=== PATIENT | female | born 2000 | race Caucasian/White ===

== ENCOUNTER 2022-04-30 00:24 | Emergency (ER) | payer BC ==
[~2022-04-30] VITALS: Ht 165.1 cm; Wt 112.5 kg
[2022-04-30] MEDS ORDERED: DULOXETINE HCL60 MG PO (00:51)
[2022-04-30] MEDS ORDERED: LAMICTAL25 MG PO (00:52)
[2022-04-30] MEDS ORDERED: TRAZODONE100 MG PO (00:52)
[2022-04-30 00:57] LABS: BILIRUBIN Negative (Negative); BLOOD 3+ (Negative); CLARITY Turbid (Clear); COLOR Yellow (Yellow); GLUCOSE Negative (Negative); KETONE Negative (Negative); LEUKO ESTERASE 3+ (Negative); NITRITE Negative (Negative); PH 5.5 (4.5-8.0); UROBILINOGEN 0.2 E.U./dl (0.0-1.0)
[2022-04-30 01:11] LABS: BACTERIA 2+; RBC TNTC rbc/hpf (0-2); WBC TNTC wbc/hpf (0-5)
[2022-04-30] MEDS ORDERED: CEPHALEXIN500 M1 PO (02:04)
== END 2022-04-30 02:31 | disposition home or self-care (01) ==
LOC: ED 00:24
PROVIDERS: Emergency Medicine
DX: N39.0 Urinary tract infection, site not specified (principal); Z91.040 Latex allergy status; Z79.899 Other long term (current) drug therapy; F17.200 Nicotine dependence, unspecified, uncomplicated

== ENCOUNTER 2022-07-04 20:23 | Emergency (ER) | payer BC ==
[~2022-07-04] VITALS: Ht 165.1 cm; Wt 113.4 kg
[~2022-07-04 20:23] MED LIST: CEPHALEXIN500 M1 PO; DULOXETINE HCL60 MG PO; LAMICTAL25 MG PO; TRAZODONE100 MG PO
[2022-07-04 21:06] LABS: BASO # 0.1 10*3/uL (0.0-0.1); BASO % 0.8 % (0.0-1.0); EOS % 7.1 % (1.0-4.0); HEMATOCRIT 45.7 % (37.0-47.0); LYMPH # 2.8 10*3/uL (1.3-4.4); LYMPH % 20.3 % (27.0-41.0); MEAN CELL VOLUME 85.3 fl (81.0-99.0); MEAN CORPUSCULAR HGB 27.6 pg (27.0-31.0); MEAN CORPUSCULAR HGB CONC 32.4 g/dl (33.0-37.0); MONO # 0.7 10*3/uL (0.1-1.0); MONO % 4.9 % (3.0-9.0); NEUT # 9.1 10*3/uL (2.3-7.9); NEUT % 66.6 % (47.0-73.0); PLATELET COUNT AUTOMATED 350 10*3/uL (130-400); RED BLOOD COUNT 5.36 10*6/uL (4.10-5.10); RED CELL DISTRI WIDTH 13.3 % (0-14.5); WHITE BLOOD COUNT 13.6 10*3/uL (4.8-10.8)
[2022-07-04 21:24] LABS: BILIRUBIN Negative (Negative); BLOOD 1+ (Negative); COLOR Yellow (Yellow); GLUCOSE Negative (Negative); KETONE Negative (Negative); LEUKO ESTERASE 2+ (Negative); NITRITE Negative (Negative); UROBILINOGEN 0.2 E.U./dl (0.0-1.0)
[2022-07-04 21:28] LABS: ALKALINE PHOSPHATASE 92 U/L (45-117); BUN 8 mg/dl (7-24); CHLORIDE 111 mmol/L (98-107); CREATININE 0.76 mg/dL (0.55-1.02); POTASSIUM 3.9 mmol/L (3.5-5.1); SGOT/AST 11 IU/L (3-35); SGPT/ALT 20 U/L (12-78); SODIUM 140 mmol/L (136-145)
[2022-07-04 22:17] LABS: CLARITY Clear (Clear)
[2022-07-04 22:43] LABS: BACTERIA 2+; EPITHELIAL CELLS TNTC
== END 2022-07-04 22:37 | disposition left against medical advice (07) ==
LOC: ED 20:23
PROVIDERS: Internal Medicine
DX: R11.2 Nausea with vomiting, unspecified (principal); Z20.822 Contact with and (suspected) exposure to COVID-19; R42 Dizziness and giddiness; Z91.040 Latex allergy status; Z79.2 Long term (current) use of antibiotics; Z79.899 Other long term (current) drug therapy; Z53.29 Procedure and treatment not carried out because of patient's decision for other reasons

== ENCOUNTER → 2022-09-18 | Outpatient (CLI) | payer BC | END | disposition home or self-care (01) | LOC: RAD 11:53 | PROVIDERS: ATTEND Nurse Practitioner Family | DX: M54.50 Low back pain, unspecified (principal) ==

== ENCOUNTER 2022-11-23 11:02 | Emergency (ER) | payer BC, OTHER ==
[~2022-11-23] VITALS: Ht 165.1 cm; Wt 108.9 kg
== END 2022-11-23 11:52 | disposition home or self-care (01) ==
LOC: ED 11:02
DX: S61.412A Laceration without foreign body of left hand, initial encounter (principal); Z91.040 Latex allergy status; W27.8XXA Contact with other nonpowered hand tool, initial encounter; Y93.89 Activity, other specified; Y92.89 Other specified places as the place of occurrence of the external cause; Y99.0 Civilian activity done for income or pay

== ENCOUNTER 2023-05-24 10:02 | Emergency (ER) | payer BC, OTHER ==
[~2023-05-24] VITALS: Ht 165.1 cm; Wt 152.0 kg
== END 2023-05-24 10:59 | disposition home or self-care (01) ==
LOC: ED 10:02
DX: S33.5XXA Sprain of ligaments of lumbar spine, initial encounter (principal); Z91.040 Latex allergy status; Z79.2 Long term (current) use of antibiotics; Z79.899 Other long term (current) drug therapy; W17.81XA Fall down embankment (hill), initial encounter; Y93.89 Activity, other specified; Y92.828 Other wilderness area as the place of occurrence of the external cause; Y99.8 Other external cause status

== ENCOUNTER 2023-10-17 13:27 | Emergency (ER) | payer OTHER, BC ==
[~2023-10-17] VITALS: Ht 165.1 cm; Wt 94.3 kg
[2023-10-17] MEDS ORDERED: CYCLOBENZAPRINE5 M3 PO (14:39)
== END 2023-10-17 14:46 | disposition home or self-care (01) ==
LOC: ED 13:27
DX: M54.9 Dorsalgia, unspecified (principal); M25.572 Pain in left ankle and joints of left foot; Z91.040 Latex allergy status; V89.2XXA Person injured in unspecified motor-vehicle accident, traffic, initial encounter; Y93.89 Activity, other specified; Y92.481 Parking lot as the place of occurrence of the external cause; Y99.8 Other external cause status

== ENCOUNTER → 2024-09-05 | Outpatient (CLI) | payer OTHER ==
[~2024-09-05] MED LIST changes: +CYCLOBENZAPRINE5 M3 PO
== END | disposition home or self-care (01) ==
LOC: RAD 12:20
PROVIDERS: ATTEND Nurse Practitioner Family
DX: M54.42 Lumbago with sciatica, left side (principal)

== ENCOUNTER 2024-09-17 11:33 | Emergency (ER) | payer OTHER ==
[~2024-09-17] VITALS: Ht 165.1 cm; Wt 95.3 kg
[2024-09-17] MEDS ORDERED: PREDNISONE20 M1 PO (12:04)
[2024-09-17] MEDS ORDERED: methylPREDNISolone sod succ 125 MG VIAL IM ONE (12:10)
== END 2024-09-17 12:16 | disposition home or self-care (01) ==
LOC: ED 11:33
DX: G89.29 Other chronic pain (principal); M54.50 Low back pain, unspecified; Z91.040 Latex allergy status

== ENCOUNTER 2024-11-15 16:58 | Emergency (ER) | payer OTHER ==
[~2024-11-15] VITALS: Ht 165.1 cm; Wt 97.5 kg
[~2024-11-15 16:58] MED LIST changes: +PREDNISONE20 M1 PO
[2024-11-15] MEDS ORDERED: AMOX-CLAV 875-1 EACH PO (17:18)
[2024-11-15] MEDS ORDERED: Ketorolac Tromethamine 60 MG/2 ML VIAL IM ONE (17:20)
== END 2024-11-15 17:27 | disposition home or self-care (01) ==
LOC: ED 16:58
DX: K04.7 Periapical abscess without sinus (principal); Z91.040 Latex allergy status; Z79.2 Long term (current) use of antibiotics; Z79.899 Other long term (current) drug therapy

== ENCOUNTER 2024-11-23 19:07 | Emergency (ER) | payer OTHER ==
[~2024-11-23] VITALS: Ht 165.1 cm; Wt 97.5 kg
[~2024-11-23 19:07] MED LIST changes: +AMOX-CLAV 875-1 EACH PO
[2024-11-23] MEDS ORDERED: HYDROXYZINE PAM50 MG PO (19:37)
[2024-11-23] MEDS ORDERED: LURASIDONE HCL20 MG PO (19:37)
[2024-11-23] MEDS ORDERED: TAMIFLU 75MG CA75 MG PO (20:47)
[2024-11-23] MEDS ORDERED: Oseltamivir Phosphate 75 MG CAP PO ONE (20:50)
== END 2024-11-23 21:12 | disposition home or self-care (01) ==
LOC: ED 19:07
DX: J02.9 Acute pharyngitis, unspecified (principal); R05.9 Cough, unspecified; Z20.822 Contact with and (suspected) exposure to COVID-19; Z91.040 Latex allergy status; Z79.899 Other long term (current) drug therapy

== ENCOUNTER 2025-03-11 19:34 | Emergency (ER) | payer OTHER ==
[~2025-03-11] VITALS: Ht 165.1 cm; Wt 97.5 kg
[~2025-03-11 19:34] MED LIST changes: +HYDROXYZINE PAM50 MG PO; +LURASIDONE HCL20 MG PO; +TAMIFLU 75MG CA75 MG PO
[2025-03-11 20:00] LABS: BILIRUBIN Negative (Negative); BLOOD Negative (Negative); CLARITY Clear (Clear); COLOR Yellow (Yellow); GLUCOSE Negative (Negative); KETONE Trace (Negative); LEUKO ESTERASE Trace (Negative); NITRITE Negative (Negative)
[2025-03-11 20:16] LABS: BACTERIA TRACE; RBC 0-2 rbc/hpf (0-2)
== END 2025-03-11 20:38 | disposition home or self-care (01) ==
LOC: ED 19:34
PROVIDERS: Nurse Practitioner
DX: R11.0 Nausea (principal); Z32.02 Encounter for pregnancy test, result negative; F32.A Depression, unspecified; Z91.040 Latex allergy status; Z79.899 Other long term (current) drug therapy

== ENCOUNTER 2025-05-01 17:40 | Emergency (ER) | payer OTHER ==
[~2025-05-01] VITALS: Ht 165.1 cm; Wt 104.3 kg
[2025-05-01] MEDS ORDERED: SODIUM CHLORIDE 0.9% 1,000 ML IV ONE (18:20)
[2025-05-01] MEDS ORDERED: IOHEXOL 300 MG/ML 100 ML VIAL IV ONE (18:25)
[2025-05-01 18:31] LABS: BASO # 0.1 10*3/uL (0.0-0.1); BASO % 0.5 % (0.0-1.0); EOS # 0.2 10*3/uL (0.0-0.4); EOS % 2.1 % (1.0-4.0); MEAN CELL VOLUME 84.8 fl (81.0-99.0); MEAN CORPUSCULAR HGB 27.4 pg (27.0-31.0); MEAN PLATELET VOLUME 9.5 fl (9.6-12.3); MONO # 0.6 10*3/uL (0.1-1.0); MONO % 5.6 % (3.0-9.0); NEUT # 7.3 10*3/uL (2.3-7.9); NEUT % 68.3 % (47.0-73.0); NUCLEATED RED BLOOD CELL 0.0 % (0.0-0.0); NUCLEATED RED BLOOD CELL 0.0 10*3/uL (0.0-0.0); PLATELET COUNT AUTOMATED 354 10*3/uL (130-400); RED CELL DISTRI WIDTH 12.9 % (0-14.5)
[2025-05-01 18:51] LABS: BILIRUBIN Negative (Negative); BLOOD Negative (Negative); CLARITY Clear (Clear); COLOR Yellow (Yellow); KETONE Trace (Negative); LEUKO ESTERASE Trace (Negative); NITRITE Negative (Negative); PH 5.5 (4.5-8.0); SPECIFIC GRAVITY 1.025 (1.001-1.030); UROBILINOGEN 1.0 E.U./dl (0.0-1.0)
[2025-05-01 18:57] LABS: BUN 8 mg/dl (9-23); SGPT/ALT 11 U/L (5-49)
[2025-05-01 19:04] LABS: BACTERIA 1+; MUCOUS 2+
== END 2025-05-01 19:58 | disposition left against medical advice (07) ==
LOC: ED 17:40
PROVIDERS: Internal Medicine
DX: K62.5 Hemorrhage of anus and rectum (principal); R10.9 Unspecified abdominal pain; R11.2 Nausea with vomiting, unspecified; Z91.040 Latex allergy status; Z79.899 Other long term (current) drug therapy